=== PATIENT | male | born 1955 | race Caucasian/White ===

== ENCOUNTER 2016-08-12 08:05 | Day surgery (SDC) | payer OTHER ==
[~2016-08-12 08:05] MED LIST: NONE PER PATIENT; TRICOR145 M1; ZETIA10 MG
== END 2016-08-12 17:15 ==
LOC: SRG 08:05 → SHSC 08:08 → ORE 10:38 → PACU 12:27 → SHSC 13:28
PROC: 09SM0ZZ Reposition Nasal Septum, Open Approach (ICD-10-PCS; principal; 2016-08-12)
PROC: 09BT4ZZ Excision of Left Frontal Sinus, Percutaneous Endoscopic Approach (ICD-10-PCS; 2016-08-12)
PROC: 09TV4ZZ Resection of Left Ethmoid Sinus, Percutaneous Endoscopic Approach (ICD-10-PCS; 2016-08-12)
PROC: 09TR4ZZ Resection of Left Maxillary Sinus, Percutaneous Endoscopic Approach (ICD-10-PCS; 2016-08-12)
PROC: 09TQ4ZZ Resection of Right Maxillary Sinus, Percutaneous Endoscopic Approach (ICD-10-PCS; 2016-08-12)
DX: J32.8 Other chronic sinusitis (principal); J33.8 Other polyp of sinus; J34.2 Deviated nasal septum; E78.5 Hyperlipidemia, unspecified; G62.9 Polyneuropathy, unspecified; K21.9 Gastro-esophageal reflux disease without esophagitis; N40.0 Benign prostatic hyperplasia without lower urinary tract symptoms; Z87.891 Personal history of nicotine dependence; Z90.89 Acquired absence of other organs; Z98.890 Other specified postprocedural states
CPT/HCPCS: C1726; C2625; J0690; J3010